=== PATIENT | female | born 1970 | race Caucasian/White ===

== ENCOUNTER 2017-12-22 08:36 | Day surgery (SDC) | payer MEDICAID ==
[~2017-12-22] VITALS: Ht 162.6 cm; Wt 81.8 kg
--- NOTE | ~2017-12-22 | OP ---
PATIENT NAME: EUNICE PEARL MEDICAL RECORD: [id number] :70 LOCATION:[facility] ADMISSION DATE: SURGEON: GALEN VIDAL DO DATE OF OPERATION: 12/22/2017 PROCEDURE: EGD with biopsies. INDICATION FOR PROCEDURE: Epigastric pain, heartburn, nausea. SCOPE: Olympus video gastroscope. MEDICATIONS: Propofol 280 mg IV per anesthesia. ESTIMATED BLOOD LOSS: Minimal. COMPLICATIONS: None. FINDINGS: Informed consent was given. The patient was made comfortable with the above medication. After reaching an adequate level of sedation by slow IV push, the patient was placed on her left side. The endoscope was advanced under direct visualization through the mouth to the second portion of the duodenum with ease. The upper, middle, and lower thirds of the esophagus appeared normal. 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 Cold forceps biopsies were taken from the GE junction to look for the presence of Wesley's and to rule out any dysplasia, although there were no visual abnormalities. The endoscope was advanced beyond the GE junction into the stomach and retroflexed to view the cardia, where a very small sliding hiatal hernia was present. In the fundus, body of the stomach, and antrum, there was evidence of gastritis, which appeared edematous and congested with some hemorrhagic appearance without bleeding. As the endoscope was advanced down to the pylorus, there were noted to be multiple ulcerations in the pyloric channel which were small to medium in size, measuring anywhere from 3 mm to 8 mm in diameter. One of these ulcers was fairly deep appearing, but they were all clean based without any evidence of bleeding. Random cold forceps biopsies were taken from the stomach to rule out the presence of H. pylori. The endoscope was advanced beyond the pylorus into the duodenum, where there was some erythema and granularity, consistent with duodenitis in the bulb. As the endoscope was advanced into the second portion of the duodenum, appearances became normal. The endoscope was then withdrawn from the patient. The patient tolerated the procedure well and there were no complications. IMPRESSIONS: 1. 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 2. Small sliding hiatal hernia. 3. Gastritis. 4. Gastric ulcers in the pyloric channel. 5. Duodenitis involving the bulb of the duodenum. PLAN AND RECOMMENDATIONS: 1. Discharge home when recovery parameters are met. 2. Followup biopsy specimen results. 3. GERD diet and reflux precautions. OPERATIVE REPORT [id number] EUNICE PEARL 4. Continue current medications. 5. We will start a proton pump inhibitor at 40 mg equivalent daily times 8 weeks and a Carafate tablet three times daily for 2 weeks. 6. If biopsies indicate presence of H. pylori, this will be treated. 7. Notify the GI clinic if symptoms worsen or fail to improve. TRANSINT:[id number] Voice Confirmation ID: [id number] DOCUMENT ID: [id number] GALEN VIDAL DO at 1351 CC: [id number] DICTATION DATE: 12/22/17 1043 [employer] PROFESSIONAL: 12/22/17 1207 [facility] 12/22/17 [id number] [place] [address]
[2017-12-22 08:49] LABS: BASOPHILS 0.2 % (0-2); EOSINOPHILS 1.2 % (0-7); HEMATOCRIT 37.2 % (36.0-48.0); HEMOGLOBIN 12.3 g/dL (12-16); LYMPHOCYTES 32.9 % (15-50); MCH 29.4 pg (26.0-34.0); MCHC 33.1 g/dL (31.0-37.0); MEAN PLATELET VOLUME 8.6 fL (7.4-10.4); MONOCYTES 7.5 % (2-11); NEUTROPHILS 58.2 % (40-80); PLATELET COUNT 109 10x3/uL (130-400); RBC 4.18 10x6/uL (4.00-5.40); RDW 21.9 % (11.5-14.5); WBC 5.1 10x3/uL (4.8-10.8)
[2017-12-22 08:58] LABS: ANION GAP 9.4 mmol/L (8-16); CALCIUM 8.4 mg/dL (8.5-10.1); CARBON DIOXIDE 30.3 mmol/L (21.0-32.0); CREATININE - SERUM 0.9 mg/dL (0.6-1.3); POTASSIUM - SERUM 4.7 mmol/L (3.5-5.1)
[2017-12-22 09:07] VITALS: BP 149/85; Ht 162.6 cm; Wt 81.8 kg
[2017-12-22] MEDS ORDERED: METOPROLOL TART25 MG PO (09:10)
[2017-12-22] MEDS ORDERED: SYNTHROID25 MCG PO (09:10)
[2017-12-22] MEDS ORDERED: SUTENT12.5 MG PO (09:12)
== END 2017-12-22 11:30 | disposition home or self-care (01) ==
LOC: D.OPS 08:36
PROVIDERS: Anesthesiology
DX: K21.0 Gastro-esophageal reflux disease with esophagitis (principal); K44.9 Diaphragmatic hernia without obstruction or gangrene; K29.50 Unspecified chronic gastritis without bleeding; B96.81 Helicobacter pylori [H. pylori] as the cause of diseases classified elsewhere; K25.9 Gastric ulcer, unspecified as acute or chronic, without hemorrhage or perforation; K29.80 Duodenitis without bleeding; Z01.812 Encounter for preprocedural laboratory examination

== ENCOUNTER → 2019-09-14 19:40 | Outpatient (CLI) | payer MEDICAID ==
[2017-12-22 09:07] VITALS: BMI 30.9
[~2019-09-14 19:40] MED LIST: METOPROLOL TART25 MG PO; SUTENT12.5 MG PO; SYNTHROID25 MCG PO
[2019-09-14 20:15] LABS: BASOPHILS 0.4 % (0-2); EOSINOPHILS 6.3 % (0-7); HEMATOCRIT 31.8 % (36.0-48.0); HEMOGLOBIN 9.7 g/dL (12-16); LYMPHOCYTES 18.8 % (15-50); MCH 26.8 pg (26.0-34.0); MCHC 30.5 g/dL (31.0-37.0); MCV 87.8 fL (80.0-100.0); MEAN PLATELET VOLUME 9.6 fL (7.4-10.4); MONOCYTES 11.3 % (2-11); NEUTROPHILS 63.2 % (40-80); RBC 3.62 10x6/uL (4.00-5.40); RDW 16.4 % (11.5-14.5)
[2019-09-14 20:16] LABS: PLATELET COUNT 368 10x3/uL (130-400)
[2019-09-14 20:32] LABS: CREATININE - SERUM 1.1 mg/dL (0.6-1.3)
== END | disposition home or self-care (01) ==
LOC: D.LABREF 19:40
PROVIDERS: ATTEND Internal Medicine
DX: N39.0 Urinary tract infection, site not specified (principal); C64.9 Malignant neoplasm of unspecified kidney, except renal pelvis; I48.91 Unspecified atrial fibrillation; I10 Essential (primary) hypertension